=== PATIENT | female | born 1955 | race Two or more races ===

== ENCOUNTER 2018-11-23 22:53 | Inpatient (IN) | payer OTHER ==
[~2018-11-23] VITALS: Ht 157.5 cm; Wt 75.3 kg
[~2018-11-23 22:53] MED LIST: ASPI-1169 PO; ATOR40TA PO; FERR325T28 PO; HYDR-4076 PO; INSU100V7 SQ; ISOS30TA6 PO; METO25TA6 PO; NPH.100V2 SQ
--- NOTE | 2018-11-23 22:53 | NUR ---
PT CHAGO FROM [facility] FOR SOB; PT AAOX2-3, PT ON MONITOR ,VSS, PENDING MD GRAY
[2018-11-23 23:15] VITALS: BP 133/90
[2018-11-23 23:18] LABS: BASOPHILS # (AUTO) 0.1 /CMM (0.0-0.2); BASOPHILS % (AUTO) 0.9 % (0.0-2.0); EOSINOPHILS % (AUTO) 8.3 % (0.0-6.0); HEMATOCRIT 30 % (33-45); HEMOGLOBIN 9.7 g/dL (11.5-14.8); LYMPHOCYTES # (AUTO) 2.4 /CMM (0.8-4.8); LYMPHOCYTES % (AUTO) 23.2 % (20.0-44.0); MEAN CORPUSCULAR HGB CONC 32 g/dl (31.0-36.0); MEAN CORPUSCULAR VOLUME 96 fL (82-100); MONOCYTES # (AUTO) 0.9 /CMM (0.1-1.30); MONOCYTES % (AUTO) 8.2 % (2.0-12.0); NEUTROPHILS # (AUTO) 6.2 /CMM (1.8-8.9); NEUTROPHILS % (AUTO) 59.4 % (43.0-81.0); PLATELET COUNT (AUTO) 281 /CMM (150-450); RED BLOOD CELL COUNT(AUTO) 3.17 MIL/uL (4.0-5.2); WHITE BLOOD COUNT (AUTO) 10.4 K/uL (4.3-11.0)
[2018-11-23] MEDS ORDERED: FUROSEMIDE 40 MG/4 ML VIAL ONE (23:23)
[2018-11-23] MEDS ORDERED: NITROGLYCERIN PACKET 1 GM PACKET ONE (23:23)
--- NOTE | 2018-11-23 23:26 | NUR ---
DAUGHTER, CHEIKH CALLED. SHE WOULD LIKE TO BE INFORMED OF ANY INFORMATION ABOUT THE PT. HER CALL BACK NUMBER IS [phone]
[2018-11-23 23:28] LABS: CALCIUM, SERUM 8.9 mg/dL (8.5-10.1); CARBON DIOXIDE 28 mmol/L (21-32); CHLORIDE 95 mmol/L (98-107); CREATININE 3.4 mg/dL (0.6-1.3); GLUCOSE 143 mg/dL (74-106); POTASSIUM 6.1 mmol/L (3.5-5.1); SODIUM SERUM 130 mmol/L (136-145); UREA NITROGEN, BLOOD 25 mg/dL (7-18)
[2018-11-23] MEDS ORDERED: NITROGLYCERIN PACKET 1 GM PACKET TD ONE (23:30)
[2018-11-23] MEDS ORDERED: FUROSEMIDE 40 MG/4 ML VIAL IV ONE (23:30)
--- NOTE | 2018-11-23 23:42 | NUR ---
URINE COLLECTED AND SENTO LAB
[2018-11-23 23:47] LABS: ALANINE AMINOTRANSFERASE 25 U/L (12-78); ALBUMIN 2.8 g/dL (3.4-5.0); ALKALINE PHOSPHATASE 161 U/L (46-116); ASPARTATE AMINOTRANSFERASE 39 U/L (15-37); BILIRUBIN,DIRECT 0.1 mg/dL (0.0-0.2); BILIRUBIN,TOTAL 0.4 mg/dL (0.2-1.0); TOTAL PROTEIN, SERUM 7.8 g/dL (6.4-8.2)
[2018-11-24] VITALS (22 sets, daily range): BP systolic 95–159; BP diastolic 35–98
[2018-11-24] MEDS ORDERED: SODIUM BICARBONATE SYR 50 MEQ/50 ML DISP.SYRIN IV ONE
[2018-11-24] MEDS ORDERED: Calcium Gluconate 1GM/10ML 4.65 MEQ in IV NS 0.9% 50 ML IV ONE ×2
[2018-11-24] MEDS ORDERED: Calcium Gluconate 0.465 MEQ/ML VIAL IV ONE (00:11)
[2018-11-24] MEDS ORDERED: SODIUM BICARBONATE SYR 50 MEQ/50 ML DISP.SYRIN ONE (00:11)
--- NOTE | 2018-11-24 00:22 | NUR ---
CALLED [facility] FOR ICU BED
--- NOTE | 2018-11-24 00:23 | NUR ---
ICU BED 255 GIVEN
--- NOTE | 2018-11-24 00:35 | NUR ---
ICU NURSE CALLED TO AMEND THE BED TO 252
[2018-11-24] MEDS ORDERED: CLOP75TA15 PO (01:43)
[2018-11-24] MEDS ORDERED: PANT40TA2 PO (01:43)
[2018-11-24] MEDS ORDERED: POLY119P2 PO (01:43)
[2018-11-24] MEDS ORDERED: HYDR-4076 PO (01:43)
[2018-11-24] MEDS ORDERED: INSU100I4 SQ (01:43)
[2018-11-24] MEDS ORDERED: SIME80TA15 PO (01:43)
[2018-11-24] MEDS ORDERED: INSU100V27 SQ (01:43)
[2018-11-24] MEDS ORDERED: MULT-213 PO (01:43)
[2018-11-24] MEDS ORDERED: FOLI1TAB16 PO (01:43)
[2018-11-24] MEDS ORDERED: SUCR1TAB31 PO (01:43)
[2018-11-24] MEDS ORDERED: METO25TA6 PO (01:43)
[2018-11-24] MEDS ORDERED: INSU100I30 SQ (01:43)
[2018-11-24] MEDS ORDERED: HYDR-4354 PO (01:43)
[2018-11-24] MEDS ORDERED: DIPH25CA83 PO (01:43)
[2018-11-24] MEDS ORDERED: SEVE800T8 PO (01:43)
[2018-11-24] MEDS ORDERED: AMLO5TAB4 PO (01:43)
[2018-11-24] MEDS ORDERED: LORA10TA7 PO (01:43)
[2018-11-24] MEDS ORDERED: LEVE500T9 PO (01:43)
[2018-11-24] MEDS ORDERED: ATOR80TA PO (01:43)
--- NOTE | 2018-11-24 01:49 | NUR ---
CALLED DR BERGERON FOR A DR TO
--- NOTE | 2018-11-24 01:50 | NUR ---
CALLED DR SYLVESTER FOR A DR TO ON THE PHONE NOW
--- NOTE | 2018-11-24 02:29 | NUR ---
REPORT GIVEN TO ISHA HUITRON FOR NATE; PT WILL BE TRANSPORTED TO ICU VIA ACLS PROTOCOL
[2018-11-24] MEDS ORDERED: SODIUM POLYSTYRENE SULFONATE 15 G/60 ML BOTTLE ONE ×2 (02:57→03:07)
[2018-11-24] MEDS ORDERED: SODIUM POLYSTYRENE SULFONATE 15 G/60 ML BOTTLE PO ONE ×2 (03:00→07:00)
--- NOTE | 2018-11-24 03:34 | NUR ---
PRODUCTION CELL LEADER. ADMISSION. PT BEING ADMITTED FROM ER VIA [facility]. RESPIRATORY FAILURE, HYPERKALEMIA. PT AWAKE, ALERT FOLLOW COMMANDS. TEST DATA DEVELOPER SHOWING NSR. IV RT NAD LT HAND. SALINE LOCK. HOB ELEVATED. RT SUBCLAVIAN HD CATH. AFEBRILE. OXYGEN NONREBREATHER,. SAT 99%, NO ACUTE DISTRESS NOTED. WILL CONTINUE TO MONITOR VITALS
[2018-11-24 04:52] LABS: BASOPHILS % (AUTO) 0.4 % (0.0-2.0); EOSINOPHILS % (AUTO) 4.7 % (0.0-6.0); HEMATOCRIT 28 % (33-45); LYMPHOCYTES # (AUTO) 1.7 /CMM (0.8-4.8); LYMPHOCYTES % (AUTO) 20.5 % (20.0-44.0); MEAN CORPUSCULAR HGB CONC 32 g/dl (31.0-36.0); MEAN CORPUSCULAR VOLUME 96 fL (82-100); MONOCYTES # (AUTO) 0.8 /CMM (0.1-1.30); MONOCYTES % (AUTO) 9.4 % (2.0-12.0); NEUTROPHILS # (AUTO) 5.4 /CMM (1.8-8.9); PLATELET COUNT (AUTO) 227 /CMM (150-450); RED BLOOD CELL COUNT(AUTO) 2.93 MIL/uL (4.0-5.2); WHITE BLOOD COUNT (AUTO) 8.3 K/uL (4.3-11.0)
[2018-11-24 05:04] LABS: CALCIUM, SERUM 8.8 mg/dL (8.5-10.1); CREATININE 3.6 mg/dL (0.6-1.3)
--- NOTE | 2018-11-24 05:17 | NUR ---
HOME SALES CONSULTANT. PT C/O NAUSEA. ZOFRAN 4MG IV GIVEN PER MD ORDERED
--- NOTE | 2018-11-24 05:24 | NUR ---
IMMIGRATION LAWYER. VA NONREBREATHER TOLERATED WELL. SAT 98%. WILL CONTINUE TO MONITOR.
[2018-11-24] MEDS: ONDANSETRON HCL/PF 4 MG/2 ML VIAL IV PRN ×2 (05:29→15:09)
[2018-11-24 05:31] LABS: POTASSIUM 6.5 mmol/L (3.5-5.1)
--- NOTE | 2018-11-24 06:32 | NUR ---
[place] AND S[place]VERWARE SALESPERSON, DR BERGERON ORDERED CALL AGAIN COLLEGE AND CAREER COUNSELOR NEPHROLOGY .WE CALLED [phone] DR BIANCA SYLVESTER AND LEFT MESSAGE. WAITING FOR CALL BACK
--- NOTE | 2018-11-24 06:38 | NUR ---
PRESS TENDER STAR SIGNAL. TACHYPNEIC NOTED. ABG ORDERED,
--- NOTE | 2018-11-24 07:01 | NUR ---
RT PLACED PATIENT ON CPAP DUE TO SOB.WILL CONTINUE TO MONITOR.
--- NOTE | 2018-11-24 07:15 | NUR ---
CHEESEMAKER HELPER OPENING NOTE RECEIVED REPORT FROM PM NURSE. PT AWAKE, ALERT X4,[place] SPEAKING ONLY.TRANSITED WITH HELP.FOLLOW COMMANDS. PEARL TECHNICIAN SHOWING NSR HR 87. IV RT NAD LT HAND.INTACT AND PATENT. SALINE LOCK. HOB ELEVATED. RT SUBCLAVIAN HD CATH. ON OXYGEN VIA NONREBREATHER. SAT 100%, NO ACUTE DISTRESS NOTED. ONGOING DIALYSIS.BED IS LOW AND IN LOCKED POSITION CALL LIGHT IN REACH.SRX3.WILL CONTINUE TO MONITOR.
--- NOTE | 2018-11-24 07:30 | NUR ---
RT PATIENT REFUSING TO KEEP CPAP MASK ON STATING SHES CHOKING. PATIENT CURRENTLY ON DIALYSIS TOLERATING WELL. WILL CONT TO MONITOR.
[2018-11-24] MEDS ORDERED: BLOO-668 IN (07:40)
[2018-11-24] MEDS ORDERED: NA P133E RC (07:40)
[2018-11-24] MEDS ORDERED: IPRA3AMP23 IH (07:40)
[2018-11-24] MEDS ORDERED: BISA10SU8 RC (07:40)
[2018-11-24] MEDS ORDERED: ACET-868 PO (07:40)
[2018-11-24] MEDS ORDERED: SENN-168 PO (07:40)
[2018-11-24 07:45] LABS: ABG PCO2 67.2 mmHg (35.0-45.0); ABG PO2 43.2 mmHg (75.0-100.0); COHb 1.3 % (0.5-1.5); MetHb 0.6 % (0.0-1.5); O2Hb 66.3 % (94.0-97.0); SITE, ABG Right Radial; VENT MODE, BG SIMPLE MASK 10L
[2018-11-24] MEDS ORDERED: SIMETHICONE 80 MG TAB.CHEW PO PRN (08:30)
[2018-11-24] MEDS ORDERED: DEXTROSE 50%-WATER 50 ML DISP.SYRIN IV PRN (08:30)
[2018-11-24] MEDS ORDERED: LORATADINE 10 MG TABLET PO PRN (08:30)
[2018-11-24] MEDS ORDERED: diphenhydrAMINE HCL 25 MG CAPSULE PO PRN (08:30)
[2018-11-24] MEDS ORDERED: INSULIN ASPART/LISPRO 100 UNIT/ML CARTRIDGE SQ PRN (08:30)
[2018-11-24] MEDS ORDERED: hydrALAZINE HCL 25 MG TABLET PO PRN (08:30)
[2018-11-24] MEDS: METOPROLOL TARTRATE 25 MG TABLET PO SCH ×2 (09:00→17:34)
[2018-11-24] MEDS: AMLODIPINE BESYLATE 5 MG TABLET PO SCH ×2 (09:00→17:33)
[2018-11-24] MEDS: INSULIN ASPART/LISPRO 100 UNIT/ML CARTRIDGE SQ SCH (09:00)
--- NOTE | 2018-11-24 09:00 | NUR ---
WINDOW UNIT AIR CONDITIONING MECHANIC NOTE SEEN BY ,UPDATED ABOUT PATIENT CONDITION.OK TO DOWNGRADE TO [facility] IF PATIENT BREATHING GOOD AFTER DIALYSIS.WILL CONTINUE TO MONITOR.
--- NOTE | 2018-11-24 10:00 | NUR ---
DUTY OFFICER NOTE PATIENT REMOVING OXYGEN MASK,DROPPING O2 SAT TO 85%.INSTRUCTIONS GIVEN .SHE TAKING OFF O2 MASK.PLACED ON BILATERAL SOFT RESTRAINT. MADE AWARE.
[2018-11-24] MEDS: CLOPIDOGREL BISULFATE 75 MG TABLET PO SCH (10:07)
[2018-11-24] MEDS: LEVETIRACETAM (250 MG) 250 MG TABLET PO SCH ×2 (10:07→21:46)
[2018-11-24] MEDS: FOLIC ACID 1 MG TABLET PO SCH (10:07)
[2018-11-24] MEDS: SUCRALFATE 1 G TABLET PO SCH ×4 (10:07→21:46)
[2018-11-24] MEDS: PANTOPRAZOLE 40 MG TABLET.DR PO SCH ×2 (10:07→17:33)
[2018-11-24] MEDS: MULTIVIT W/MINERALS 1 TAB TABLET PO SCH (10:07)
[2018-11-24] MEDS: ASPIRIN 81 MG TAB.CHEW PO SCH (10:07)
[2018-11-24] MEDS: SEVELAMER CARBONATE 800 MG TABLET PO SCH ×3 (10:08→17:33)
[2018-11-24 10:15] LABS: ABG OXYGEN SATURATION 98.5 % (92.0-98.5); ABG PCO2 43.9 mmHg (35.0-45.0); ABG PH 7.433 (7.350-7.450); ABG PO2 148.8 mmHg (75.0-100.0); AaDO2 411.7 mmHg; COHb 0.6 % (0.5-1.5); MetHb 0.7 % (0.0-1.5); O2Hb 97.2 % (94.0-97.0); SITE, ABG Left Radial; VENT MODE, BG NRB MASK 12 L
--- NOTE | 2018-11-24 10:30 | NUR ---
MEDICAL DETAILIST NOTE ABG DONE,PATIENT PLACED ON NASAL CANNULA 4L.SATURATING 96-98%.WILL, CONTINUE TO MONITOR.
[2018-11-24] MEDS: FUROSEMIDE 40 MG/4 ML VIAL IV SCH ×2 (10:37→17:33)
[2018-11-24] MEDS: BLOOD SUGAR DIAGNOSTIC 1 EACH STRIP IN SCH ×3 (12:20→21:47)
--- NOTE | 2018-11-24 13:00 | NUR ---
ALTERATION WORKROOM SUPERVISOR NOTE REMOVED RESTRAINT.PATIENT COMPLAINT WITH TREATMENT.NOT REMOVING ANY TUBES.WILL CONTINUE TO MONITOR.
[2018-11-24] MEDS: HYDROCODONE/APAP 10/325MG 1 EA TABLET PO PRN (15:13)
--- NOTE | 2018-11-24 17:30 | NUR ---
[facility] RN NOTE PATIENT TRANSFERRED TO [facility].WILL CONTINUE TO MONITOR.
--- NOTE | 2018-11-24 19:23 | NUR ---
[facility] RN NOTE ENDORSED PATIENT TO PM NURSE FOR NATE IN STABLE CONDITION.
--- NOTE | 2018-11-24 20:00 | NUR ---
[facility] RN NOTES RECEIVED PATIENT'S BEDSIDE REPORT FROM AM RN. PATIENT IS IN BED, INDIAN SPEAKING ONLY. PATIENT IS A/A/O X3 ON O2 4L VIA NC WITH SPO2 OF 99%.ON DEPARTMENTAL SHIPPING CLERK SR WITH HR OF 80'S. LEFT UPPER CHEST WALL HD CATHETER IS IN PLACE, LEFT AC G18 AND RIGHT AC D20 IV LINES ARE PATIENT AND INTACT, FLASHING WELL. NO SOB, NO COMPLAINT OF PAIN AT THIS TIME. ALL SAFETY MEASURES ARE IN PLACE, BED IN LOW, LOCKED POSITION, CALL LIGHT IN REACH. WILL CONTINUE TO MONITOR PATIENT CLOSELY.
[2018-11-24] MEDS ORDERED: Z GUARD REMEDY 2 OZ OINT TP PRN (20:30)
[2018-11-24] MEDS ORDERED: INSULIN GLARGINE, 100 UNIT/ML CARTRIDGE SQ SCH (22:00)
[2018-11-24] MEDS ORDERED: POLYETHYLENE GLYCOL 3350 17 GM POWD.PACK PO SCH (22:00)
[2018-11-24] MEDS ORDERED: ATORVASTATIN 40 MG TABLET PO SCH (22:00)
[2018-11-25] VITALS: BP 111/61
[2018-11-25 04:00] VITALS: BP 107/61
[2018-11-25 04:44] VITALS: BP 125/55
[2018-11-25 04:45] VITALS: BP_SYST 107; BP_SYST 111; BP_DIAS 61
[2018-11-25 06:52] LABS: BASOPHILS % (AUTO) 0.7 % (0.0-2.0); EOSINOPHILS % (AUTO) 5.6 % (0.0-6.0); HEMATOCRIT 27 % (33-45); HEMOGLOBIN 8.7 g/dL (11.5-14.8); LYMPHOCYTES # (AUTO) 1.6 /CMM (0.8-4.8); LYMPHOCYTES % (AUTO) 23.7 % (20.0-44.0); MEAN CORPUSCULAR HGB CONC 33 g/dl (31.0-36.0); MEAN CORPUSCULAR VOLUME 95 fL (82-100); MONOCYTES # (AUTO) 0.6 /CMM (0.1-1.30); MONOCYTES % (AUTO) 8.7 % (2.0-12.0); NEUTROPHILS # (AUTO) 4.2 /CMM (1.8-8.9); NEUTROPHILS % (AUTO) 61.3 % (43.0-81.0); PLATELET COUNT (AUTO) 188 /CMM (150-450); RED BLOOD CELL COUNT(AUTO) 2.82 MIL/uL (4.0-5.2); WHITE BLOOD COUNT (AUTO) 6.9 K/uL (4.3-11.0)
[2018-11-25 07:16] LABS: ALBUMIN 2.2 g/dL (3.4-5.0); BILIRUBIN,TOTAL 0.4 mg/dL (0.2-1.0); CALCIUM, SERUM 8.3 mg/dL (8.5-10.1); CREATININE 1.6 mg/dL (0.6-1.3); MAGNESIUM 1.9 mg/dL (1.8-2.4); PHOSPHORUS 1.6 mg/dL (2.5-4.9); POTASSIUM 2.9 mmol/L (3.5-5.1); TOTAL PROTEIN, SERUM 6.4 g/dL (6.4-8.2)
[2018-11-25 08:00] VITALS: BP 103/56
[2018-11-25] MEDS: BLOOD SUGAR DIAGNOSTIC 1 EACH STRIP IN SCH ×2 (08:35→11:24)
[2018-11-25] MEDS: SEVELAMER CARBONATE 800 MG TABLET PO SCH ×2 (08:36→12:00)
[2018-11-25] MEDS: LEVETIRACETAM (250 MG) 250 MG TABLET PO SCH (08:36)
[2018-11-25] MEDS: CLOPIDOGREL BISULFATE 75 MG TABLET PO SCH (08:38)
[2018-11-25] MEDS: ASPIRIN 81 MG TAB.CHEW PO SCH (08:38)
[2018-11-25] MEDS: SUCRALFATE 1 G TABLET PO SCH ×2 (08:38→12:00)
[2018-11-25] MEDS: HYDROCODONE/APAP 10/325MG 1 EA TABLET PO PRN (08:39)
[2018-11-25] MEDS: MULTIVIT W/MINERALS 1 TAB TABLET PO SCH (08:39)
[2018-11-25] MEDS: FOLIC ACID 1 MG TABLET PO SCH (08:39)
[2018-11-25] MEDS: AMLODIPINE BESYLATE 5 MG TABLET PO SCH (08:40)
[2018-11-25] MEDS: METOPROLOL TARTRATE 25 MG TABLET PO SCH (08:40)
[2018-11-25] MEDS: PANTOPRAZOLE 40 MG TABLET.DR PO SCH (08:40)
[2018-11-25] MEDS: INSULIN ASPART/LISPRO 100 UNIT/ML CARTRIDGE SQ SCH (08:41)
[2018-11-25] MEDS: FUROSEMIDE 40 MG/4 ML VIAL IV SCH (08:44)
[2018-11-25] MEDS: POTASSIUM CHLORIDE 20 MEQ TAB.PRT.SR PO SCH ×2 (10:24→11:24)
[2018-11-25 13:00] VITALS: BP 111/64
--- NOTE | 2018-11-25 14:15 | NUR ---
RN NOTE PT DISCHARGED TO [facility], IN STABLE CONDITION, VS STABLE, PT AOX3, MALTESE SPEAKING, TEACHINGS DONE, DISCHARGE INSTRUCTIONS PROVIDED TO PT, PT VERBALIZED UNDERSTANDING, EXIT CARE DONE, IV REMOVED, ID BANDS REMOVED, HD CATHETER IN LEFT CHEST WALL LEFT IN PLACE INTACT, DRESSING INTACT. PT HAD NO BELONGINGS, PICTURES TAKEN AND PLACED IN CHART. REPORT GIVEN TO TOMY OLIVAS AT THE FACILITY. PT ACCORDING TO [facility], PT HAD REFUSED PNA SHOT, BUT CURRENT FLU VACCINATION, AUGUST 2018.
== END 2018-11-25 14:14 | DRG 425 ==
LOC: ER 22:55 → ICU 11-24 00:33 → TELE-TD 11-24 17:04 → MEDSG1 11-25 09:07
PROVIDERS: ADMIT Internal Medicine; ATTEND Internal Medicine
PROC: 5A1D70Z Performance of Urinary Filtration, Intermittent, Less than 6 Hours Per Day (ICD-10-PCS; principal; 2018-11-24)
PROC: 5A1D70Z Performance of Urinary Filtration, Intermittent, Less than 6 Hours Per Day (ICD-10-PCS; 2018-11-25)
DX: E87.70 Fluid overload, unspecified (principal); J96.00 Acute respiratory failure, unspecified whether with hypoxia or hypercapnia; J81.1 Chronic pulmonary edema; J90 Pleural effusion, not elsewhere classified; E11.22 Type 2 diabetes mellitus with diabetic chronic kidney disease; E87.5 Hyperkalemia; E11.9 Type 2 diabetes mellitus without complications; D64.9 Anemia, unspecified; I12.0 Hypertensive chronic kidney disease with stage 5 chronic kidney disease or end stage renal disease; I25.10 Atherosclerotic heart disease of native coronary artery without angina pectoris; N18.6 End stage renal disease; Z99.2 Dependence on renal dialysis; F32.9 Major depressive disorder, single episode, unspecified; E78.5 Hyperlipidemia, unspecified; Z95.1 Presence of aortocoronary bypass graft; Z95.5 Presence of coronary angioplasty implant and graft; Z82.49 Family history of ischemic heart disease and other diseases of the circulatory system; Z79.4 Long term (current) use of insulin; Z79.82 Long term (current) use of aspirin; Z88.0 Allergy status to penicillin; Z79.899 Other long term (current) drug therapy; Z79.02 Long term (current) use of antithrombotics/antiplatelets; G40.909 Epilepsy, unspecified, not intractable, without status epilepticus; Z91.19 Patient's noncompliance with other medical treatment and regimen; N25.0 Renal osteodystrophy; E21.3 Hyperparathyroidism, unspecified
CPT/HCPCS: 36415; 36600; 71045-TC; 80048-TC; 80053-TC; 80076-TC; 82550-TC; 82803-TC; 82962-TC; 83605-TC; 83735-TC; 83880; 83970; 84100-TC; 84484-TC; 85025-TC; 85730-TC; 86704; 86705; 86706; 87040-TC; 87081-TC; 87340; 90935-TC; 94799-TC; A4216; G0378; J0610; J1815; J1940; J2405; J3490; Q0163

== ENCOUNTER 2018-12-11 01:39 | Emergency (ER) | payer OTHER ==
[~2018-12-11] VITALS: Ht 157.5 cm; Wt 68.0 kg
[~2018-12-11 01:39] MED LIST changes: +ACET-868 PO; +AMLO5TAB4 PO; -ATOR40TA PO; +ATOR80TA PO; +BISA10SU8 RC; +BLOO-668 IN; +CLOP75TA15 PO; +DIPH25CA83 PO; -FERR325T28 PO; +FOLI1TAB16 PO; +HYDR-4354 PO; +INSU100I30 SQ; +INSU100I4 SQ; +INSU100V27 SQ; -INSU100V7 SQ; +IPRA3AMP23 IH; -ISOS30TA6 PO; +LEVE500T9 PO; +LORA10TA7 PO; +MULT-213 PO; +NA P133E RC; -NPH.100V2 SQ; +PANT40TA2 PO; +POLY119P2 PO; +SENN-168 PO; +SEVE800T8 PO; +SIME80TA15 PO; +SUCR1TAB31 PO
--- NOTE | 2018-12-11 01:45 | NUR ---
PT CHAGO FROM [facility] C/O CHEST PAIN X3 DAYS, WORSE TODAY. ALSO C/O HEADACHE AND NAUSEA. PT AAOX4. RESPIRATONS EVEN AND UNLABORED. SKIN WARM AND INTACT. VITAL SIGNS STABLE. NO ACUTE DISTRESS NOTED AT THIS TIME. PLACED ON CONTINUOUS NEUROLOGY TECHNOLOGIST, WILL CONTINUE TO MONITOR.
--- NOTE | 2018-12-11 01:50 | NUR ---
PT PRESENTED TO ER WITH SALINE LOCK 22G ON R HAND. LABS DRAWN FROM SITE AND COLLECTED BY LAB. IV INTACT AND PATENT, PLACED ON SALINE LOCK
[2018-12-11] MEDS ORDERED: ASPIRIN 81 MG TAB.CHEW ONE (01:59)
[2018-12-11] MEDS ORDERED: NITROGLYCERIN 0.4 MG/TAB BOTTLE ONE (01:59)
[2018-12-11] MEDS ORDERED: ONDANSETRON HCL/PF 4 MG/2 ML VIAL ONE (01:59)
[2018-12-11] MEDS ORDERED: NITROGLYCERIN 0.4 MG/TAB BOTTLE SL ONE (02:00)
[2018-12-11] MEDS ORDERED: ASPIRIN 81 MG TAB.CHEW PO ONE (02:00)
--- NOTE | 2018-12-11 02:06 | NUR ---
PT'S CURRENT B/P:105/. PER VERBAL MD ORDER, HOLD NITROSTAT SL
[2018-12-11 02:17] LABS: BASOPHILS % (AUTO) 0.6 % (0.0-2.0); CALCIUM, SERUM 8.1 mg/dL (8.5-10.1); CARBON DIOXIDE 28 mmol/L (21-32); CHLORIDE 94 mmol/L (98-107); CREATININE 3.5 mg/dL (0.6-1.3); EOSINOPHILS % (AUTO) 8.6 % (0.0-6.0); GLUCOSE 75 mg/dL (74-106); HEMATOCRIT 27 % (33-45); HEMOGLOBIN 8.9 g/dL (11.5-14.8); LYMPHOCYTES # (AUTO) 2.4 /CMM (0.8-4.8); LYMPHOCYTES % (AUTO) 38.3 % (20.0-44.0); MEAN CORPUSCULAR HGB CONC 33 g/dl (31.0-36.0); MEAN CORPUSCULAR VOLUME 91 fL (82-100); MONOCYTES # (AUTO) 0.7 /CMM (0.1-1.30); MONOCYTES % (AUTO) 11.8 % (2.0-12.0); NEUTROPHILS # (AUTO) 2.6 /CMM (1.8-8.9); NEUTROPHILS % (AUTO) 40.7 % (43.0-81.0); PLATELET COUNT (AUTO) 305 /CMM (150-450); POTASSIUM 5.7 mmol/L (3.5-5.1); RED BLOOD CELL COUNT(AUTO) 2.97 MIL/uL (4.0-5.2); SODIUM SERUM 127 mmol/L (136-145); UREA NITROGEN, BLOOD 29 mg/dL (7-18); WHITE BLOOD COUNT (AUTO) 6.4 K/uL (4.3-11.0)
[2018-12-11] MEDS ORDERED: ONDANSETRON HCL/PF - ER 4 MG/2 ML VIAL IV ONE (02:30)
[2018-12-11 02:31] LABS: ALANINE AMINOTRANSFERASE 20 U/L (12-78); ALBUMIN 2.5 g/dL (3.4-5.0); ALKALINE PHOSPHATASE 122 U/L (46-116); ASPARTATE AMINOTRANSFERASE 35 U/L (15-37); B-TYPE NATRIURETIC PEPTIDE 36633 PG/ML (0-125); BILIRUBIN,DIRECT 0.1 mg/dL (0.0-0.2); BILIRUBIN,TOTAL 0.3 mg/dL (0.2-1.0); TOTAL PROTEIN, SERUM 7.1 g/dL (6.4-8.2)
--- NOTE | 2018-12-11 03:13 | NUR ---
SPOKE WITH ANNABELLE, WATER TREATMENT PLANT MECHANIC FOR [facility]. WILL CALL BACK TO FOLLOW UP. CONTACT INFORMATION:
--- NOTE | 2018-12-11 03:35 | NUR ---
PT STILL COMPLAINING OF CHEST PAIN RATED 10, BP 153/73. PER VERBAL MD ORDER, WILL ADMINISTER NITROSTAT SL
--- NOTE | 2018-12-11 04:34 | NUR ---
[facility] Bed 213-b, # for report [phone]
--- NOTE | 2018-12-11 04:51 | NUR ---
GAVE REPORT TO MARYELLEN HUITRON FOR NATE
[2018-12-11] MEDS ORDERED: DEXTROSE 50%-WATER 50 ML DISP.SYRIN ONE (05:06)
[2018-12-11] MEDS ORDERED: GLUCAGON,HUMAN RECOMBINANT 1 MG/VIAL VIAL ONE (05:06)
[2018-12-11] MEDS ORDERED: WATER FOR INJECTION,STERILE 10 ML ONE (05:07)
[2018-12-11] MEDS ORDERED: DEXTROSE 50%-WATER 50 ML DISP.SYRIN IVP ONE ×2 (05:30)
[2018-12-11] MEDS ORDERED: GLUCAGON,HUMAN RECOMBINANT 1 MG/VIAL VIAL IV ONE (05:30)
--- NOTE | 2018-12-11 06:04 | NUR ---
CALLED [facility] FOR TRANSPORT ETA OF 0800 WAS GIVEN. TRIP#[id number]
[2018-12-11 06:05] VITALS: BP 156/86
--- NOTE | 2018-12-11 07:08 | NUR ---
GAVE REPORT TO GABI HUITRON FOR NATE
--- NOTE | 2018-12-11 09:01 | NUR ---
PT TRANSPORTED TO [facility]IA [facility], LEFT IN STABLE CONDITION, VSS, NAD NOTED, REPORT GIVEN TO AMBUALNCE STAFF.
[2018-12-19] MEDS ORDERED: INSU100I19 SQ (09:32)
[2018-12-19] MEDS ORDERED: LEVO750T21 PO (09:40)
== END 2018-12-11 09:10 | disposition short-term general hospital (02) ==
LOC: ER 01:42
DX: I24.9 Acute ischemic heart disease, unspecified (principal); I13.0 Hypertensive heart and chronic kidney disease with heart failure and stage 1 through stage 4 chronic kidney disease, or unspecified chronic kidney disease; N18.9 Chronic kidney disease, unspecified; E11.649 Type 2 diabetes mellitus with hypoglycemia without coma; I25.10 Atherosclerotic heart disease of native coronary artery without angina pectoris; F32.9 Major depressive disorder, single episode, unspecified; Z88.0 Allergy status to penicillin; Z60.2 Problems related to living alone; Z79.4 Long term (current) use of insulin; Z79.82 Long term (current) use of aspirin
CPT/HCPCS: 36415; 71045; 80048; 80076; 82550; 82962 ×2; 83605; 83880; 84484; 85025; 85730; 87081; 93005; 96374; 96375; 99291; J1610; J2405 ×2

== ENCOUNTER 2018-12-18 11:26 | Inpatient (IN) | payer OTHER ==
[~2018-12-18] VITALS: Ht 160 cm; Wt 77.1 kg
--- NOTE | 2018-12-18 11:31 | NUR ---
CHAGO FROM SNF FOR SOB; PT AAOX2-3, PT ON MONITOR, VSS, NAD NOTED, RT AND MD AT BEDSIDE.
[2018-12-18 11:51] LABS: BASOPHILS % (AUTO) 0.3 % (0.0-2.0); HEMATOCRIT 30 % (33-45); HEMOGLOBIN 9.6 g/dL (11.5-14.8); LYMPHOCYTES # (AUTO) 1.2 /CMM (0.8-4.8); LYMPHOCYTES % (AUTO) 10.1 % (20.0-44.0); MEAN CORPUSCULAR HGB CONC 32 g/dl (31.0-36.0); MEAN CORPUSCULAR VOLUME 91 fL (82-100); MONOCYTES # (AUTO) 0.9 /CMM (0.1-1.30); MONOCYTES % (AUTO) 7.4 % (2.0-12.0); NEUTROPHILS # (AUTO) 9.7 /CMM (1.8-8.9); NEUTROPHILS % (AUTO) 81.2 % (43.0-81.0); PLATELET COUNT (AUTO) 227 /CMM (150-450); RED BLOOD CELL COUNT(AUTO) 3.28 MIL/uL (4.0-5.2)
[2018-12-18 12:13] LABS: ALANINE AMINOTRANSFERASE 22 U/L (12-78); ALBUMIN 2.6 g/dL (3.4-5.0); ALKALINE PHOSPHATASE 129 U/L (46-116); ASPARTATE AMINOTRANSFERASE 38 U/L (15-37); B-TYPE NATRIURETIC PEPTIDE 59568 PG/ML (0-125); BILIRUBIN,DIRECT 0.1 mg/dL (0.0-0.2); BILIRUBIN,TOTAL 0.3 mg/dL (0.2-1.0); CALCIUM, SERUM 8.7 mg/dL (8.5-10.1); CARBON DIOXIDE 30 mmol/L (21-32); CHLORIDE 96 mmol/L (98-107); CREATININE 4.2 mg/dL (0.6-1.3); GLUCOSE 116 mg/dL (74-106); SODIUM SERUM 130 mmol/L (136-145); TOTAL PROTEIN, SERUM 7.2 g/dL (6.4-8.2); UREA NITROGEN, BLOOD 39 mg/dL (7-18)
[2018-12-18 12:14] LABS: POTASSIUM 6.5 mmol/L (3.5-5.1)
--- NOTE | 2018-12-18 12:20 | NUR ---
CALLED DR BERGERON ON THE PHONE WITH DR CHRISTINA
[2018-12-18] MEDS ORDERED: ONDA4TAB5 PO (12:32)
[2018-12-18] MEDS ORDERED: TRAM50TA2 PO (12:32)
[2018-12-18] MEDS ORDERED: TRAM50TA PO (12:32)
[2018-12-18] MEDS ORDERED: INSU100I19 SQ (12:32)
[2018-12-18] MEDS ORDERED: DOCU-141 PO (12:32)
[2018-12-18] MEDS ORDERED: ZOLP5TAB2 PO (12:32)
[2018-12-18] MEDS ORDERED: LEVA0.6320 IH (12:32)
[2018-12-18] MEDS ORDERED: ALPR0.25 PO (12:32)
[2018-12-18] MEDS ORDERED: INSU100V11 SQ (12:32)
[2018-12-18] MEDS ORDERED: IPRA0.2S9 IH (12:32)
--- NOTE | 2018-12-18 12:35 | NUR ---
CALLED [facility] NEPHROLOGY RAISIN SEPARATOR OPERATOR WAS PAGED.
[2018-12-18 12:37] LABS: APPEARANCE,URINE Slightly Cloudy (CLEAR); BILIRUBIN,URINE Negative (NEGATIVE); BLOOD, URINE Trace-intact Ery/uL (NEGATIVE); COLOR,URINE Yellow (YELLOW); KETONES,URINE Negative (NEGATIVE); LEUKOCYTE ESTERASE ,URINE Small (NEGATIVE); NITRITE, URINE Negative (NEGATIVE); PH,URINE 8.5 (5.0-8.0); PROTEIN,URINE >=300 mg/dl (NEGATIVE); UGLUCOSE 100 MG/DL mg/dL (NEGATIVE); UROBILINOGEN,URINE 0.2 EU/dL (0.2)
[2018-12-18] MEDS ORDERED: ALBUTEROL FS 2.5 MG/3 ML VIAL.NEB ONE (12:39)
[2018-12-18 12:42] LABS: BACTERIA,URINE Few /HPF (None Seen); SQUAMOUS EPITHELIAL CELL,UR Few /HPF (None Seen)
[2018-12-18] MEDS ORDERED: DEXTROSE 50%-WATER 50 ML DISP.SYRIN ONE (12:44)
[2018-12-18] MEDS ORDERED: INSULIN REGULAR, HUMAN 100 UNIT/ML 10 ML VIAL ONE (12:44)
[2018-12-18] MEDS ORDERED: SODIUM BICARBONATE SYR 50 MEQ/50 ML DISP.SYRIN ONE (12:44)
[2018-12-18] MEDS ORDERED: INSULIN REGULAR, HUMAN 100 UNIT/ML 10 ML VIAL IV ONE (13:00)
[2018-12-18] MEDS ORDERED: SODIUM BICARBONATE SYR 50 MEQ/50 ML DISP.SYRIN IV ONE (13:00)
[2018-12-18] MEDS ORDERED: DEXTROSE 50%-WATER 50 ML DISP.SYRIN IV ONE (13:00)
[2018-12-18] MEDS ORDERED: ALBUTEROL FS 2.5 MG/3 ML VIAL.NEB NEB ONE (13:00)
--- NOTE | 2018-12-18 13:14 | NUR ---
SPOKE TO [facility] CHARGE NURSE, ROOM IS NOT READY UNTIL 3PM. PT IS ALREADY PRESENTED TO INPATIENT MD. [facility] CN WILL CALL BACK FOR UPDATE
--- NOTE | 2018-12-18 13:45 | NUR ---
REPORT GIVEN TO LENI HUITRON FOR NATE; WILL BE TRANSPORTED TO 1ST FLOOR VIA ACLS PROTOCOL
[2018-12-18 15:05] VITALS: BP 113/57
--- NOTE | 2018-12-18 15:59 | NUR ---
RN NOTE 1410: Admitted 63 y/o female patient from ER, patient is a resident of [facility]. Patient is so lethargic, able to open eyes when called by name at times. Patient has K 6.5, HD patient. Skin assessment done, noted with right lower abd skin discoloration, abdominal fold redness, ad sacral redness, taken pictures and attached to chart. With RQAC g20 PIV, with left chest wall HD cath. ST 100's on the monitor. on 4LPM of O2 via NC, sat 98%. 1430: HD nurse at bedside, starting HD. 1500: Contacted Dr. Weiss for admitting orders, he said he will come here shortly. 1555: Still lethargic, but able to respond to name at times.
[2018-12-18] MEDS ORDERED: Z GUARD REMEDY 2 OZ OINT TP PRN (16:00)
[2018-12-18] MEDS ORDERED: ZOLPIDEM TARTRATE 5 MG TABLET PO PRN (16:30)
[2018-12-18] MEDS ORDERED: NA PHOS,M-B/NA PHOS,DI-BA 1 EA ENEMA RC PRN (16:30)
[2018-12-18] MEDS ORDERED: LORATADINE 10 MG TABLET PO PRN (16:30)
[2018-12-18] MEDS ORDERED: BISACODYL SUPP (10 MG) 10 MG/SUPP.RECT SUPP.RECT RC PRN (16:30)
[2018-12-18] MEDS ORDERED: DOCUSATE SODIUM 100 MG CAPSULE PO PRN (16:30)
[2018-12-18] MEDS ORDERED: ONDANSETRON 4 MG TAB.RAPDIS PO PRN (16:30)
[2018-12-18] MEDS ORDERED: TRAMADOL HCL 50 MG TABLET PO PRN ×2 (16:30)
[2018-12-18] MEDS ORDERED: ALPRAZOLAM 0.25 MG TABLET PO PRN (16:30)
[2018-12-18] MEDS ORDERED: diphenhydrAMINE HCL 25 MG CAPSULE PO PRN (16:30)
[2018-12-18] MEDS ORDERED: INSULIN ASPART/LISPRO 100 UNIT/ML CARTRIDGE SQ PRN ×2 (16:30→17:00)
[2018-12-18] MEDS ORDERED: ACETAMINOPHEN 325 MG TABLET PO PRN (16:30)
[2018-12-18] MEDS ORDERED: hydrALAZINE HCL 25 MG TABLET PO PRN (16:30)
[2018-12-18] MEDS ORDERED: SIMETHICONE 80 MG TAB.CHEW PO PRN (16:30)
--- NOTE | 2018-12-18 16:56 | NUR ---
RN NOTE S/E by Dr. Weiss, patient still lethargic. But responds to verbal stimuli now. HD nurse reported 200mL out. Per MD, next CMP in am.
[2018-12-18] MEDS ORDERED: DEXTROSE 50%-WATER 50 ML DISP.SYRIN IV PRN (17:00)
[2018-12-18] MEDS ORDERED: *INSULIN ASPART NOVOLOG 100 UNIT/ML CARTRIDGE SQ PRN (17:00)
[2018-12-18] MEDS: SEVELAMER CARBONATE 800 MG TABLET PO SCH (17:08)
[2018-12-18] MEDS: SUCRALFATE 1 G TABLET PO SCH ×2 (17:09→22:08)
[2018-12-18] MEDS: PANTOPRAZOLE 40 MG TABLET.DR PO SCH (17:10)
[2018-12-18] MEDS: METOPROLOL TARTRATE 25 MG TABLET PO SCH (17:10)
[2018-12-18] MEDS: BLOOD SUGAR DIAGNOSTIC 1 EACH STRIP IN SCH ×2 (17:26→22:14)
[2018-12-18] MEDS ORDERED: INSULIN ASPART/LISPRO 100 UNIT/ML CARTRIDGE SQ SCH (17:30)
[2018-12-18] MEDS ORDERED: BLOOD SUGAR DIAGNOSTIC 1 EACH STRIP IN SCH (17:30)
[2018-12-18] MEDS ORDERED: CEFTRIAXONE 1 G in IV D5W 50 ML IV SCH (18:00)
--- NOTE | 2018-12-18 19:00 | NUR ---
Received patient,lethargic but arousable,responds to repeated name call,opens eyes,follows simple commands,does not speak Sinhala,only Indonesian but seems coherent and appropriate.Not any distress with O2 via NC 2 L/min.Looks very tired and weakly.Denies any pain .HD catheter via Left subclavian ,dressing dry and intact.
[2018-12-18] MEDS: IPRATROPIUM NEB FS 0.5 MG/2.5 ML AMPUL.NEB IH SCH ×2 (19:29→23:11)
[2018-12-18] MEDS: ALBUTEROL HALF STRENGTH 1.25 MG/3 ML VIAL.NEB NEB SCH ×2 (19:30→23:11)
[2018-12-18 20:00] VITALS: BP 135/75
[2018-12-18] MEDS ORDERED: INSULIN GLARGINE, 100 UNIT/ML CARTRIDGE SQ SCH (22:00)
[2018-12-18] MEDS ORDERED: AMLODIPINE BESYLATE 5 MG TABLET PO SCH ×2 (22:00)
[2018-12-18] MEDS ORDERED: POLYETHYLENE GLYCOL 3350 17 GM POWD.PACK PO SCH (22:00)
[2018-12-18] MEDS ORDERED: ATORVASTATIN 40 MG TABLET PO SCH (22:00)
[2018-12-18] MEDS ORDERED: SENNOSIDES 8.6 MG TABLET PO SCH (22:00)
--- NOTE | 2018-12-18 22:00 | NUR ---
More alert and awake,talking more ,feels stronger,able to move with assistance.Denies any pain ,not in any distress.Needs attended,comfort care done.
[2018-12-18] MEDS: LEVETIRACETAM (250 MG) 250 MG TABLET PO SCH (22:10)
[2018-12-19] VITALS (9 sets, daily range): BP systolic 93–130; BP diastolic 61–70
--- NOTE | 2018-12-19 | NUR ---
Remains stable,awake and alert,not in any distress,denies any pain. needs attended.
--- NOTE | 2018-12-19 03:00 | NUR ---
Patient noted to have removed her cover and her gown,noted to be diaphoretic and lethargic but arousable,able to say "im hot ",observed to be all wet and sweaty , BP -125/66. O2 sat = 96%. Blood sugar /FS checked , FS=17, 0305 Given orange juice x 4 (125 ml each), 0320 1 amp(50 ml) D50 IVP given . 0325 MT=313/69, HR=86 ,O2 sat=97%, more alert now ,feeling better .FS rechecked =165.Will closely monitor.
[2018-12-19] MEDS: ALBUTEROL HALF STRENGTH 1.25 MG/3 ML VIAL.NEB NEB SCH ×4 (03:48→15:44)
[2018-12-19] MEDS: IPRATROPIUM NEB FS 0.5 MG/2.5 ML AMPUL.NEB IH SCH ×4 (03:49→15:44)
--- NOTE | 2018-12-19 04:30 | NUR ---
Repaet TT=930,patient stable,awake,alert.not in any distress. 0500 Remains stable,AM care done by ENVIRONMENTAL ENGINEER SCIENTIST ,tolerated well
[2018-12-19 06:59] LABS: BASOPHILS % (AUTO) 0.5 % (0.0-2.0); EOSINOPHILS % (AUTO) 2.8 % (0.0-6.0); HEMATOCRIT 28 % (33-45); HEMOGLOBIN 9.3 g/dL (11.5-14.8); LYMPHOCYTES # (AUTO) 1.6 /CMM (0.8-4.8); LYMPHOCYTES % (AUTO) 24.9 % (20.0-44.0); MEAN CORPUSCULAR HGB CONC 33 g/dl (31.0-36.0); MEAN CORPUSCULAR VOLUME 92 fL (82-100); MONOCYTES # (AUTO) 0.8 /CMM (0.1-1.30); NEUTROPHILS # (AUTO) 3.8 /CMM (1.8-8.9); NEUTROPHILS % (AUTO) 59.8 % (43.0-81.0); PLATELET COUNT (AUTO) 196 /CMM (150-450); RED BLOOD CELL COUNT(AUTO) 3.08 MIL/uL (4.0-5.2); WHITE BLOOD COUNT (AUTO) 6.3 K/uL (4.3-11.0)
[2018-12-19 07:14] LABS: CALCIUM, SERUM 8.8 mg/dL (8.5-10.1); CARBON DIOXIDE 30 mmol/L (21-32); CHLORIDE 102 mmol/L (98-107); CREATININE 2.8 mg/dL (0.6-1.3); GLUCOSE 106 mg/dL (74-106); POTASSIUM 5.3 mmol/L (3.5-5.1); SODIUM SERUM 138 mmol/L (136-145); UREA NITROGEN, BLOOD 24 mg/dL (7-18)
[2018-12-19] MEDS: BLOOD SUGAR DIAGNOSTIC 1 EACH STRIP IN SCH ×2 (08:12→11:30)
[2018-12-19] MEDS: PANTOPRAZOLE 40 MG TABLET.DR PO SCH ×2 (08:18→16:17)
[2018-12-19] MEDS: LEVETIRACETAM (250 MG) 250 MG TABLET PO SCH (08:18)
[2018-12-19] MEDS: SEVELAMER CARBONATE 800 MG TABLET PO SCH ×2 (08:18→12:00)
[2018-12-19] MEDS: METOPROLOL TARTRATE 25 MG TABLET PO SCH ×2 (08:18→16:17)
[2018-12-19] MEDS: SUCRALFATE 1 G TABLET PO SCH ×3 (08:18→16:16)
--- NOTE | 2018-12-19 08:24 | NUR ---
INITIAL [facility] RN NOTE RCVD PT AWAKE AND ALERT, HUNGARIAN SPEAKING, ABLE TO FOLLOW COMMANDS, SR ON TELE. IV SITE C/D/I/PATENT, NO S/O INFILTRATION/PHLEBITIS OBSERVED UPON FLUSHING LINE. PT'S BLOOD GLUCOSE BEING MONITORED WITH ONE EPISODE OF HYPOGLYCEMIA OVERNIGHT. BLOOD GLUCOSE WNL THIS AM. WILL CONTINUE TO MONITOR PT FOR SAFETY AND CCOMFORT. BED IN LOW AND LOCKED POSITION, CALL LIGHT WITHIN REACH, HEAD OF BED ELEVATED.
[2018-12-19] MEDS ORDERED: ASPIRIN 81 MG TAB.CHEW PO SCH (09:00)
[2018-12-19] MEDS ORDERED: FOLIC ACID 1 MG TABLET PO SCH (09:00)
[2018-12-19] MEDS ORDERED: CLOPIDOGREL BISULFATE 75 MG TABLET PO SCH (09:00)
--- NOTE | 2018-12-19 09:30 | NUR ---
KYAW RN NOTE DR. BERGERON IN UNIT INFORMED OF PT'S HYPOGLYCEMIC EPISODE OVERNIGHT, LANTUS AT HS DOSE DECREASED. PT UNDERGOING DIALYSIS TX AT THIS TIME, APPEARS IN NO DISTRESS. WILL CONTINUE TO MONITOR.
[2018-12-19] MEDS ORDERED: INSU100I19 SQ (09:32)
[2018-12-19] MEDS ORDERED: LEVO750T21 PO (09:40)
--- NOTE | 2018-12-19 17:48 | NUR ---
DISCHARGE [facility] RN NOTE PT DISCHARGED TO [facility], REPORT CALLED TO RENATA WARD AT FACILITY. IV SITE DISCONTINUED, VITAL SIGNS STABLE, PT AWAKE AND ALERT SHOWING NO S/O DISTRESS. EDUCATION MATERIALS WERE DISCUSSED WITH PT. PT'S DAUGHTER, CHEIKH, WAS CALLED IN TO BE INFORMED OF DISCHARGE. PT TRANSPORTED VIA AMBULANCE.
== END 2018-12-19 17:30 | DRG 194 ==
LOC: ER 11:28 → TELE1 13:28 → TELE-TD 13:31
PROVIDERS: ADMIT Internal Medicine; ATTEND Internal Medicine
PROC: 5A1D70Z Performance of Urinary Filtration, Intermittent, Less than 6 Hours Per Day (ICD-10-PCS; principal; 2018-12-18)
PROC: 5A1D70Z Performance of Urinary Filtration, Intermittent, Less than 6 Hours Per Day (ICD-10-PCS; 2018-12-19)
DX: I13.2 Hypertensive heart and chronic kidney disease with heart failure and with stage 5 chronic kidney disease, or end stage renal disease (principal); G93.41 Metabolic encephalopathy; E11.22 Type 2 diabetes mellitus with diabetic chronic kidney disease; E87.5 Hyperkalemia; N18.6 End stage renal disease; N39.0 Urinary tract infection, site not specified; E78.5 Hyperlipidemia, unspecified; I50.31 Acute diastolic (congestive) heart failure; D63.1 Anemia in chronic kidney disease; I25.10 Atherosclerotic heart disease of native coronary artery without angina pectoris; I70.0 Atherosclerosis of aorta; F32.9 Major depressive disorder, single episode, unspecified; Z88.0 Allergy status to penicillin; Z99.2 Dependence on renal dialysis; Z95.1 Presence of aortocoronary bypass graft; Z95.5 Presence of coronary angioplasty implant and graft; Z82.49 Family history of ischemic heart disease and other diseases of the circulatory system; Z79.899 Other long term (current) drug therapy; Z79.82 Long term (current) use of aspirin; Z79.4 Long term (current) use of insulin; Z79.02 Long term (current) use of antithrombotics/antiplatelets; Q78.9 Osteochondrodysplasia, unspecified; R09.02 Hypoxemia
CPT/HCPCS: 36415; 71045-TC; 80048-TC; 80074; 80076-TC; 81000-TC; 82962-TC; 83605-TC; 83880; 84132-TC; 84484-TC; 85025-TC; 85730-TC; 86709-TC; 87040-TC; 87081-TC; 87086-TC; 87340; 87400; 90935-TC; 94760-TC; 94799-TC; G0378; J0696; J1815; J3490; J7060